=== PATIENT | female | born 1975 | race Caucasian/White ===

== ENCOUNTER 2016-12-29 07:05 | Day surgery (SDC) | payer OTHER ==
[~2016-12-29] VITALS: Ht 152.4 cm; Wt 52.2 kg
[~2016-12-29 07:05] MED LIST: AMOXICILLIN TRI1 POW; CAT0.1 PO; CIPRO250 MG PO; FERROUS GLUCON324 MG PO; GLU5 PO; LAC PO; NEP PO; NORCO1 TA1 PO; ROC25 PO; ZOFRAN ODT4 MG SL
[2016-12-29 07:54] LABS: BASOPHIL % 0.6 % (0-2); PLATELET COUNT 282 x10^3mcL (130-400)
[2016-12-29 07:56] VITALS: BP 160/91
[2016-12-29 07:57] LABS: RED CELL DISTRIBUTION WIDTH 17.1 % (11.5-14.5)
[2016-12-29 08:04] LABS: CALCIUM 7.7 mg/dL (8.5-10.1); POTASSIUM SERUM 4.1 mmol/L (3.5-5.1)
[2016-12-29 08:21] LABS: CREATININE SERUM 6.4 mg/dL (0.6-1.0)
[2016-12-29 14:01] VITALS: BP 152/82
== END 2016-12-29 13:45 | disposition home or self-care (01) ==
LOC: DS 07:05 → OR 07:05 → DS 13:45
DX: I12.0 Hypertensive chronic kidney disease with stage 5 chronic kidney disease or end stage renal disease (principal); N18.6 End stage renal disease
CPT/HCPCS: J0690; J1170; J1644; J2001; J2405; J3010; J3490

== ENCOUNTER 2016-12-31 16:52 | Emergency (ER) | payer OTHER ==
[~2016-12-31] VITALS: Ht 149.9 cm; Wt 52.8 kg
[2016-12-31 20:20] LABS: BASOPHIL % 0.5 % (0-2)
[2016-12-31 20:21] LABS: PLATELET COUNT 247 x10^3mcL (130-400); RED CELL DISTRIBUTION WIDTH 16.7 % (11.5-14.5)
[2016-12-31 20:33] LABS: BILIRUBIN TOTAL 0.3 mg/dL (0.20-1.00); CALCIUM 7.7 mg/dL (8.5-10.1); CARBON DIOXIDE 31.8 mmol/L (21-32); POTASSIUM SERUM 4.4 mmol/L (3.5-5.1)
[2016-12-31 22:20] VITALS: BP 155/84
== END 2016-12-31 22:20 | disposition home or self-care (01) ==
LOC: ED 16:52
PROVIDERS: Emergency Medicine
DX: R11.2 Nausea with vomiting, unspecified (principal); N18.6 End stage renal disease; Z99.2 Dependence on renal dialysis
CPT/HCPCS: J2405; J7030

== ENCOUNTER 2017-03-09 13:35 | Inpatient (IN) | payer OTHER ==
[~2017-03-09] VITALS: Ht 149.9 cm; Wt 54.4 kg
[2017-03-09 15:12] LABS: BILIRUBIN TOTAL 0.67 mg/dL (0.20-1.00); CALCIUM 8.2 mg/dL (8.5-10.1); CARBON DIOXIDE 29.7 mmol/L (21-32); POTASSIUM SERUM 4.5 mmol/L (3.5-5.1); TOTAL PROTEIN, SERUM 7.7 g/dL (6.4-8.2)
[2017-03-09 15:13] LABS: BASOPHIL % 0.4 % (0-2); PLATELET COUNT 263 x10^3mcL (130-400)
[2017-03-09 15:17] LABS: ALBUMIN 3.2 g/dL (3.4-5.0)
[2017-03-09 15:18] LABS: CREATININE SERUM 6.7 mg/dL (0.6-1.0)
[2017-03-09] MEDS ORDERED: LISINOPRIL1 PO1 (16:17)
[2017-03-09] MEDS ORDERED: GLYBURIDE2.5 MG (16:17)
[2017-03-09] MEDS ORDERED: HUMALOG100 U/ML (16:17)
[2017-03-09 17:55] LABS: MAGNESIUM 2.2 mg/dL (1.8-2.4); PHOSPHOROUS 6.1 mg/dL (2.5-4.9)
[2017-03-09 18:06] LABS: T3 TOTAL 0.81 ng/mL
[2017-03-09 18:07] LABS: FREE T4 1.32 ng/dL (0.76-1.46); FREE THYROXINE INDEX 3.3 ug/dL (1.4-4.5); T4(THYROXINE) 9.7 ug/dL (4.7-13.3)
[2017-03-09] MEDS ORDERED: CLONIDINE HCL0.2 MG PO (18:53)
[2017-03-09] MEDS ORDERED: HYDROCHLOROTHIA25 MG PO (18:54)
[2017-03-09] MEDS ORDERED: FUROSEMIDE80 MG PO (18:55)
[2017-03-09 19:05] VITALS: BP 192/106
[2017-03-09] MEDS ORDERED: AMLODIPINE BESY10 M2 PO (20:19)
[2017-03-09 20:21] VITALS: BP 135/77
[2017-03-09] MEDS ORDERED: METOCLOPRAMIDE H5 M1 PO (20:47)
[2017-03-09 20:52] VITALS: BP 138/77
[2017-03-09] MEDS ORDERED: OMEPRAZOLE40 M1 PO (20:53)
[2017-03-09] MEDS ORDERED: ONDANSETRON4 M3 PO (20:54)
[2017-03-09] MEDS ORDERED: MINOXIDIL2.5 MG PO (20:56)
[2017-03-10 06:16] VITALS: BP 183/99
[2017-03-10 06:32] LABS: BASOPHIL % 0.6 % (0-2); PLATELET COUNT 254 x10^3mcL (130-400)
[2017-03-10 06:45] LABS: RED CELL DISTRIBUTION WIDTH 14.7 % (11.5-14.5)
[2017-03-10 06:52] LABS: CALCIUM 7.8 mg/dL (8.5-10.1); CARBON DIOXIDE 24.7 mmol/L (21-32); MAGNESIUM 2.3 mg/dL (1.8-2.4); PHOSPHOROUS 7.4 mg/dL (2.5-4.9); POTASSIUM SERUM 5.1 mmol/L (3.5-5.1)
[2017-03-10 06:53] LABS: CREATININE SERUM 7.6 mg/dL (0.6-1.0)
[2017-03-10 07:19] LABS: UA SPECIFIC GRAVITY 1.015 (1.005-1.035); microscopic required? YES; urine erythrocyte TRACE (NEGATIVE)
[2017-03-10 07:22] LABS: AMPHETAMINE QUAL UR NONE DETECTED (NEG <=1000)
[2017-03-10 07:50] VITALS: BP 150/82
[2017-03-10 10:35] VITALS: BP 166/85
[2017-03-10 14:20] VITALS: BP 144/77
[2017-03-10 21:25] VITALS: BP 139/68
[2017-03-11] VITALS (7 sets, daily range): BP systolic 134–173; BP diastolic 74–93
[2017-03-11 06:17] LABS: BASOPHIL % 0.6 % (0-2); PLATELET COUNT 257 x10^3mcL (130-400)
[2017-03-11 06:36] LABS: CALCIUM 7.5 mg/dL (8.5-10.1); CARBON DIOXIDE 26.3 mmol/L (21-32); MAGNESIUM 1.9 mg/dL (1.8-2.4); PHOSPHOROUS 6.5 mg/dL (2.5-4.9); POTASSIUM SERUM 4.6 mmol/L (3.5-5.1)
[2017-03-11 07:08] LABS: RED CELL DISTRIBUTION WIDTH 14.6 % (11.5-14.5)
[2017-03-11 07:17] LABS: CREATININE SERUM 5.8 mg/dL (0.6-1.0)
[2017-03-12 05:53] VITALS: BP 153/85
[2017-03-12 05:58] LABS: BASOPHIL % 0.7 % (0-2); PLATELET COUNT 261 x10^3mcL (130-400); RED CELL DISTRIBUTION WIDTH 14.2 % (11.5-14.5)
[2017-03-12 06:19] LABS: PHOSPHOROUS 7.9 mg/dL (2.5-4.9); POTASSIUM SERUM 4.8 mmol/L (3.5-5.1)
[2017-03-12 06:22] LABS: CREATININE SERUM 7.5 mg/dL (0.6-1.0)
[2017-03-12 10:19] VITALS: BP 170/79
[2017-03-12 15:31] LABS: BASOPHIL % 0.6 % (0-2); PLATELET COUNT 267 x10^3mcL (130-400); RED CELL DISTRIBUTION WIDTH 14.1 % (11.5-14.5)
[2017-03-12 15:52] LABS: CALCIUM 7.6 mg/dL (8.5-10.1); MAGNESIUM 1.7 mg/dL (1.8-2.4); PHOSPHOROUS 5.4 mg/dL (2.5-4.9); POTASSIUM SERUM 3.9 mmol/L (3.5-5.1)
[2017-03-12 15:58] LABS: CREATININE SERUM 4.2 mg/dL (0.6-1.0)
[2017-03-12 17:25] VITALS: BP 175/85
[2017-03-12 17:45] VITALS: BP 174/85
[2017-03-12 19:35] VITALS: BP 135/70
[2017-03-13 05:50] VITALS: BP 140/72
[2017-03-13 05:54] LABS: BASOPHIL % 0.4 % (0-2); PLATELET COUNT 239 x10^3mcL (130-400)
[2017-03-13 06:03] LABS: CALCIUM 7.2 mg/dL (8.5-10.1); CARBON DIOXIDE 26.9 mmol/L (21-32); MAGNESIUM 1.8 mg/dL (1.8-2.4); PHOSPHOROUS 6.1 mg/dL (2.5-4.9); POTASSIUM SERUM 4.2 mmol/L (3.5-5.1)
[2017-03-13 06:05] LABS: CREATININE SERUM 5.1 mg/dL (0.6-1.0); RED CELL DISTRIBUTION WIDTH 14.7 % (11.5-14.5)
[2017-03-13] MEDS ORDERED: LEVAQUIN750 MG PO ×2 (09:47→09:51)
[2017-03-13] MEDS ORDERED: CLEOCIN HCL300 MG PO ×2 (09:49→09:51)
[2017-03-13] MEDS ORDERED: LAC PO (09:50)
[2017-03-13] MEDS ORDERED: CAT0.1 PO (09:53)
[2017-03-13 10:22] VITALS: BP 146/80
[2017-03-13 11:45] VITALS: BP 146/80
== END 2017-03-13 13:30 | disposition home or self-care (01) | DRG 177 ==
LOC: ED 13:35 → MU 16:56 → DU 16:56 → MU 03-10 17:45
PROVIDERS: Emergency Medicine; ADMIT Family Medicine
DX: J69.0 Pneumonitis due to inhalation of food and vomit (principal); N18.6 End stage renal disease; I50.43 Acute on chronic combined systolic (congestive) and diastolic (congestive) heart failure; N17.0 Acute kidney failure with tubular necrosis; E87.1 Hypo-osmolality and hyponatremia; E44.0 Moderate protein-calorie malnutrition; I13.2 Hypertensive heart and chronic kidney disease with heart failure and with stage 5 chronic kidney disease, or end stage renal disease; M94.0 Chondrocostal junction syndrome [Tietze]; E11.65 Type 2 diabetes mellitus with hyperglycemia; E11.51 Type 2 diabetes mellitus with diabetic peripheral angiopathy without gangrene; E83.39 Other disorders of phosphorus metabolism; E87.8 Other disorders of electrolyte and fluid balance, not elsewhere classified; K21.9 Gastro-esophageal reflux disease without esophagitis; D63.1 Anemia in chronic kidney disease; Z99.2 Dependence on renal dialysis; Z79.4 Long term (current) use of insulin; Z79.84 Long term (current) use of oral hypoglycemic drugs
CPT/HCPCS: 82962; 83880; 84439; 94150; J0360; J0456; J0696; J1885; J2405; J2543; J7030; J7050; J7620; Q0092

== ENCOUNTER 2017-03-25 16:10 | Emergency (ER) | payer OTHER ==
[~2017-03-25 16:10] MED LIST changes: +AMLODIPINE BESY10 M2 PO; +CLEOCIN HCL300 MG PO; +CLONIDINE HCL0.2 MG PO; +FUROSEMIDE80 MG PO; +GLYBURIDE2.5 MG; +HUMALOG100 U/ML; +HYDROCHLOROTHIA25 MG PO; +LEVAQUIN750 MG PO; +LISINOPRIL1 PO1; +METOCLOPRAMIDE H5 M1 PO; +MINOXIDIL2.5 MG PO; +OMEPRAZOLE40 M1 PO; +ONDANSETRON4 M3 PO
[2017-03-25 18:44] LABS: BILIRUBIN TOTAL 0.2 mg/dL (0.20-1.00); CALCIUM 7.2 mg/dL (8.5-10.1); CARBON DIOXIDE 27.4 mmol/L (21-32); POTASSIUM SERUM 5.5 mmol/L (3.5-5.1); TOTAL PROTEIN, SERUM 6.6 g/dL (6.4-8.2)
[2017-03-25 18:47] LABS: ALBUMIN 2.8 g/dL (3.4-5.0)
[2017-03-25 18:50] LABS: CREATININE SERUM 5.9 mg/dL (0.6-1.0)
[2017-03-25 18:56] LABS: BASOPHIL % 0.3 % (0-2); PLATELET COUNT 267 x10^3mcL (130-400)
[2017-03-25 19:03] LABS: RED CELL DISTRIBUTION WIDTH 16.1 % (11.5-14.5)
[2017-03-25 20:21] VITALS: BP 158/75
== END 2017-03-25 20:21 | disposition home or self-care (01) ==
LOC: ED 16:10
PROVIDERS: Emergency Medicine
DX: I12.0 Hypertensive chronic kidney disease with stage 5 chronic kidney disease or end stage renal disease (principal); E11.22 Type 2 diabetes mellitus with diabetic chronic kidney disease; N18.6 End stage renal disease; E87.6 Hypokalemia; D64.9 Anemia, unspecified; Z99.2 Dependence on renal dialysis; Z79.899 Other long term (current) drug therapy
CPT/HCPCS: 36415; Q0092

== ENCOUNTER 2017-06-22 19:32 | Emergency (ER) | payer OTHER ==
[2017-06-22 21:07] LABS: BASOPHIL % 0.4 % (0-2); PLATELET COUNT 340 x10^3mcL (130-400)
[2017-06-22 21:16] LABS: RED CELL DISTRIBUTION WIDTH 19.3 % (11.5-14.5)
[2017-06-22 21:34] LABS: ALBUMIN 3.9 g/dL (3.4-5.0); BILIRUBIN TOTAL 0.97 mg/dL (0.20-1.00); CALCIUM 9.4 mg/dL (8.5-10.1); CARBON DIOXIDE 25.9 mmol/L (21-32); POTASSIUM SERUM 5.3 mmol/L (3.5-5.1)
[2017-06-22 21:36] LABS: TOTAL PROTEIN, SERUM 9.5 g/dL (6.4-8.2)
[2017-06-22 21:37] LABS: CREATININE SERUM 7.6 mg/dL (0.6-1.0)
[2017-06-22 23:25] VITALS: BP 191/103
== END 2017-06-22 23:25 | disposition home or self-care (01) ==
LOC: ED 19:32
PROVIDERS: Emergency Medicine
DX: R60.0 Localized edema (principal); I31.3 Pericardial effusion (noninflammatory); I12.9 Hypertensive chronic kidney disease with stage 1 through stage 4 chronic kidney disease, or unspecified chronic kidney disease; E11.22 Type 2 diabetes mellitus with diabetic chronic kidney disease; N18.9 Chronic kidney disease, unspecified; Z90.49 Acquired absence of other specified parts of digestive tract; Z98.51 Tubal ligation status
CPT/HCPCS: 83880; J2270; J2405; Q0092

== ENCOUNTER 2017-06-25 15:00 | Inpatient (IN) | payer OTHER ==
[~2017-06-25] VITALS: Ht 149.9 cm; Wt 51.7 kg
--- NOTE | 2017-06-25 15:31 | NUR ---
PT TO ED FOR EVAL OF DIZZINESS AND GENERALIZED WEAKNESS. PT STARTED FEELING THESE SYMPTOMS WHLE DRIVING TO PICK DAUGHTER UP FROM SCHOOL. DAUGHTER STATES THAT MOTHER STATED TO HER " I FEEL LIKE I'M GOING TO PASS OUT" STATES FEELING DIZZY WITH DRY MOUTH. DIALYSIS THURSDAY, THURSDAY, AND SAT. PT WAS SUPPOSED TO BE AT DIALYSIS THIS AFTERNOON. PT TO ROOM 4. PLACED ON CARDIAC MONITORS. PT APPREARS VERY SLEEPY. ABLE TO ANSWER QUESTIONS THEN FALLS ASLEEP. GLUCOSE [id number]. PT PLACED ON CM AND 02. CONTINUE TO MONITOR.
[2017-06-25 15:58] LABS: BASOPHIL % 0.7 % (0-2); PLATELET COUNT 241 x10^3mcL (130-400)
[2017-06-25 16:01] LABS: RED CELL DISTRIBUTION WIDTH 18.9 % (11.5-14.5)
--- NOTE | 2017-06-25 16:12 | NUR ---
FAMILY AT BEDSIDE PT ON CM NO DISTRESS VSS IVF INFUSION STARTED WILL MONITOR
[2017-06-25 16:22] LABS: BILIRUBIN TOTAL 0.56 mg/dL (0.20-1.00); CALCIUM 7.8 mg/dL (8.5-10.1); CARBON DIOXIDE 29.3 mmol/L (21-32); TOTAL PROTEIN, SERUM 7.5 g/dL (6.4-8.2)
[2017-06-25 16:25] LABS: ALBUMIN 3.1 g/dL (3.4-5.0)
[2017-06-25 16:26] LABS: CREATININE SERUM 7.9 mg/dL (0.6-1.0); POTASSIUM SERUM 6.5 mmol/L (3.5-5.1)
--- NOTE | 2017-06-25 16:46 | NUR ---
PT TO CT
--- NOTE | 2017-06-25 16:54 | NUR ---
PT BACK FROM CT WITH NO INCIDENT
--- NOTE | 2017-06-25 18:49 | NUR ---
REPORT GIVEN TO [facility] RESUMING CARE OF PT IN TELE FLOOR
--- NOTE | 2017-06-25 18:55 | NUR ---
PT TRANSPORTED TO TELE FLOOR VIA GURNEY ON PORTABLE CM NO DISTRESS VSS, IV SITE PATENT. COBY PETTIT RESUMING CARE OF PT IN TELE FLOOR. SHYANN RN AND SUSANA EMT TRANSPORTING PT, ACCOMPANYING PT TO FLOOR.
--- NOTE | 2017-06-25 19:06 | NUR ---
REC'D PT FROM ER [facility]IA [facility]. PT IS AAOX4. SLOW TO ANSWER. C/O 03/16 HEADACHE. TELE #25 SR. RESP EVEN AND UNLABORED. NO SOB NOTED. 1+ EDEMA TO LLE. AV SHUNT NOTED TO LEFT UPPER ARM. BRUIT/THRILL PRESENT. IV NOTED TO RFA. INTACT AND PATENT. ORIENTED PT TO CALL LIGHT. BED IN LOWEST POSITION. WILL ENDORSE TO PRIMARY RN.
[2017-06-25 19:11] VITALS: BP 152/77
[2017-06-25 19:21] VITALS: BP 152/77
--- NOTE | 2017-06-25 19:30 | NUR ---
REC'D PT FROM [facility]. PT AAOX4, SLOW TO RESPOND, WHISPERED SPEECH. ABLE TO VERBALIZE NEEDS. PUPILS SLUGGISH. TELE 25. DENIES CP, DIZZINESS, OR PALPITATIONS. EDEMA TO BLE, L>R. DENIES RESP DISTRESS OR SOB. BREATHING EVEN/UNLABORED ON RA, SPO2 95%. LUNG SOUNDS CTA. DENIES ABD PAIN, TENDERNESS, OR N/V. HD PT. OLIGURIA. REPORTS VOIDING SMALL AMOUNTS 1-2X DAILY. LUE AV SHUNT, BRUIT/THRILL PRESENT. GEN WEAKNESS. SKIN INTACT. NO COMPLAINTS OF PAIN OR DISCOMFORT AT THIS TIME. IV TO RFA PATENT AND INFUSING. CALL LIGHT WITHIN REACH, BED AT LOWEST POSITION. WILL CONTINUE TO MONITOR.
--- NOTE | 2017-06-25 20:20 | NUR ---
REC'D ORDER FOR HD [facility]. [facility] MADE AWARE AND CONFIRMED APPOINTMENT. STATED SHE "WILL BE THERE." CONSENT OBTAINED FOR HD BY PT. AT BEDSIDE. WILL CONTINUE TO MONITOR.
--- NOTE | 2017-06-25 20:40 | NUR ---
PT C/O PAIN TO LLE 10/10. UNABLE TO DESCRIBE PAIN. MORPHINE GIVEN PER ORDER. PT REQUESTING FOOD. ON RENAL DIET. TURKEY SANDWICH WITHOUT TOMATO AND APPLE JUICE GIVEN. WILL CONTINUE TO MONITOR.
--- NOTE | 2017-06-25 20:45 | NUR ---
DIALYSIS NURSE IN. 1L NS, CURRENT LABS, AND DR'S ORDERS GIVEN. WILL CONTINUE TO MONITOR.
[2017-06-25 21:07] LABS: MAGNESIUM 2.5 mg/dL (1.8-2.4); PHOSPHOROUS 8.7 mg/dL (2.5-4.9)
[2017-06-25 21:19] LABS: FREE T4 0.83 ng/dL (0.76-1.46); FREE THYROXINE INDEX 1.8 ug/dL (1.4-4.5); T4(THYROXINE) 5.4 ug/dL (4.7-13.3)
[2017-06-25 21:23] LABS: T3 TOTAL 0.59 ng/mL
--- NOTE | 2017-06-25 23:32 | NUR ---
DR. BROOKS MADE AWARE OF PTS CXR OF IMPRESSION RESULT STATED THAT THERE ARE BIBASILAR INFILTRATES WHICH COULD REPRESENT ATELECTASIS OR PNEUMONIA.
--- NOTE | 2017-06-25 23:35 | NUR ---
DIALYSIS IN PROGRESS. TOLERATING WELL. PT RESTING IN BED WITH EYES CLOSED. NO SIGNS OF DISTRESS NOTED. BREATHING EVEN/UNLABORED ON RA. WILL CONTINUE TO MONITOR.
--- NOTE | 2017-06-25 23:49 | NUR ---
CXR SHOWS PNA. DR. BROOKS MADE AWARE. ABX ORDERED.
--- NOTE | 2017-06-26 00:07 | NUR ---
DIALYSIS COMPLETED. 3L OUT VIA LUE SHUNT. PT TOLERATED WELL. RESTING IN BED. WILL CONTINUE TO MONITOR.
[2017-06-26 00:15] VITALS: BP 150/73
--- NOTE | 2017-06-26 01:02 | NUR ---
NS ORDERED @ 100 ML/HR. BNP [id number]. DR. BROOKS MADE AWARE VIA [employer]. NO CHANGES IN ORDERS AT THIS TIME.
--- NOTE | 2017-06-26 05:48 | NUR ---
PT RESTING IN BED. AAOX4, WHISPERED SPEECH. REPONSE TIME FASTER THAN LAST NIGHT. PT STATED SHE FEELS "A LITTLE BIT BETTER." REPORTS MILD PAIN TO LLE. BP ELEVATED. 180/82, MAP 102, HR 80. DR. BROOKS MADE AWARE. ORDERED TO GIVE AM BP MED EARLY. CATAPRESS MARK ANN PO GIVEN. WILL RECHECK BP. BS 133, NO COVERAGE. CALL LIGHT WITHIN REACH, BED AT LOWEST POSITION. WILL ENDORSE TO DAY NURSE.
[2017-06-26 06:17] LABS: BASOPHIL % 0.9 % (0-2); PLATELET COUNT 238 x10^3mcL (130-400)
[2017-06-26 06:31] VITALS: BP 181/80
--- NOTE | 2017-06-26 06:33 | NUR ---
BP STILL ELEVATED 185/87, MAP 119, HR 83. LASIX PO 80 MG GIVEN EARLY. MD AWARE. PT ASYMPTOMATIC. WILL RECHECK BP.
[2017-06-26 06:45] LABS: CALCIUM 8.4 mg/dL (8.5-10.1); CARBON DIOXIDE 30.4 mmol/L (21-32); MAGNESIUM 2.1 mg/dL (1.8-2.4); PHOSPHOROUS 5.6 mg/dL (2.5-4.9); POTASSIUM SERUM 3.9 mmol/L (3.5-5.1); URIC ACID 2.7 mg/dL (2.6-6.0)
[2017-06-26 06:49] LABS: CHOLESTEROL/HDL RATIO 3.3
[2017-06-26 06:52] LABS: CREATININE SERUM 4.9 mg/dL (0.6-1.0)
[2017-06-26 07:05] LABS: RED CELL DISTRIBUTION WIDTH 19.6 % (11.5-14.5)
--- NOTE | 2017-06-26 07:30 | NUR ---
PATIENT IS IN BED, AWAKE, ALERT AND ORIENTED. IVF INFUSING WELL TO RT F/A. LUNGS CLEAR ON ROOM AIR RESP EVEN AND UNLABORED. TELE 25 NSR AT THIS TIME. DENIES ANY CHEST PAIN . PATIENT C/O 8/10 PAIN ON LEFT UPPER THIGH. MEDICATED WITH MS 2MG IV BY [facility] ORDERED. WILL MONITOR FOR EFFECT. DENIES ANY H/A OR DIZZINESS. AV SHUNT ON LEFT UPPER ARM NOTED WITH GOOD BRUIT/THRILL. RIGHT THIGH NOTED TO HAVE 1+ EDEMA. AMBULATES TO THE BATHROOM. PER PATIENT SHE ONLY VOIDS VERY LITTLE USUALLY ONCE PER DAY. NO ACUTE DISTRESS NOTED. WILL CONTINUE TO MONITOR.
--- NOTE | 2017-06-26 08:30 | NUR ---
DR CARROLL AND MEDICAL TEAM INTO SEE PATIENT AND DISCUSS PLAN OF CARE.
[2017-06-26 08:50] VITALS: BP 169/78
[2017-06-26 10:57] LABS: UA SPECIFIC GRAVITY 1.015 (1.005-1.035); microscopic required? YES; urine erythrocyte 1+ (NEGATIVE)
[2017-06-26 11:12] LABS: AMPHETAMINE QUAL UR NONE DETECTED (NEG <=1000)
[2017-06-26 12:42] VITALS: BP 151/76
--- NOTE | 2017-06-26 15:20 | NUR ---
PATIENT IS IN BED APPEARS TO BE RESTING WELL. K-PAD TO BLE ORDERED. VISITORS HAVE BEEN INTO SEE PATIENT. NO ACUTE DISTRESS NOTED.
[2017-06-26 16:33] VITALS: BP 145/75
--- NOTE | 2017-06-26 17:08 | NUR ---
I HAVE REVIEWED THE DATA COLLECTION BY [facility] (NAME): GAVIN PAINTING ENTERED ON (DATE/TIME): 06/26/17 I CONCUR WITH THE DATA AND ANY EXCEPTIONS OR COMMENTS ARE LISTED BELOW:
--- NOTE | 2017-06-26 17:35 | NUR ---
PATIENT IS SITTING UP IN BED WITH K-PAD ON BILAT THIGH AREA. PATIENT STATES HER PAIN LEVEL HAS DECREASED TO 3/10 ON THE PAIN SCALE AFTER MS IV WAS GIVEN. PATIENT UP TO THE BATHROOM PRN. NO ACUTE DISTRESS NOTED. WILL CONTINUE TO MONITOR. FAMILY MEMBERS HAVE BEEN INTO VISIT.
--- NOTE | 2017-06-26 19:25 | NUR ---
AOX4. AT BEDSIDE. TELE #25, NSR. LUNGS CLEAR AND UNLABORED ON RA. RADIAL AND PEDAL PULSES PALPABLE, EDEMA NOTED TO LEFT THIGH. BOWEL SOUNDS ACTIVE. SKIN INTACT. KPAD TO BLE. DENIES PAIN. DENIES DIZZINESS. NS @ 10 ML/HR TO R FA, NO REDNESS OR SWELLING. AV SHUNT PRESENT TO LUE. BED IN LOW POSITION, CALL LIGHT IN REACH. INSTRUCTED TO CALL FOR ASSISTANCE.
[2017-06-26 21:01] VITALS: BP 141/69
--- NOTE | 2017-06-27 01:09 | NUR ---
BREATHING EVEN AND UNLABORED. NO ACUTE DISTRESS NOTED. WILL CONTINUE TO MONITOR.
[2017-06-27 05:36] VITALS: BP 125/73
--- NOTE | 2017-06-27 06:06 | NUR ---
NO ACUTE DISTRESS NOTED. NO ACUTE CHANGES DURING SHIFT. PT WILL RECIEVE HD TODAY. WILL ENDORSE TO ONCOMING RN.
--- NOTE | 2017-06-27 07:40 | NUR ---
RECEIVED PT IN BED ALERT AND ORIENTED X4. TELE #25, NSR 75. DENIES CP, [place] OR DIZZINESS. BREATHING EVEN AND UNLABORED ON RA, NO SOB. DENIES ABD PAIN OR N/V/D. HD PT, AV SHUNT TO JULIAN. AMBULATORY. SWELLING AND TENDERNESS NOTED TO L THIGH, PT REPORTS DISCOMFORT TO AREA ESPECIALLY WHEN TOUCHED. SKIN CDI. INSTRUCTED TO USE CALL LIGHT WHEN IN NEED OF ANY ASSISTANCE.
--- NOTE | 2017-06-27 08:40 | NUR ---
PT RECEIVING HEMODIALYSIS NOW. HD RN AT BEDSIDE.
[2017-06-27 08:46] VITALS: BP 137/74
--- NOTE | 2017-06-27 12:00 | NUR ---
HEMODIALYSIS DONE. TOTAL OUTPUT OF 3L.
[2017-06-27 12:44] VITALS: BP 149/69
[2017-06-27 16:30] VITALS: BP 143/84
--- NOTE | 2017-06-27 17:46 | NUR ---
PT IN BED, ALERT AND ORIENTED, CONTINUES TO COMPLAIN OF ACHING PAIN TO L THIGH. MEDICATED WITH NORCO X2 THIS SHIFT WITH GOOD RELIEF. DRESSING TO SHUNT ON JULIAN CDI. CALL LIGHT WITHIN REACH.
[2017-06-27 19:02] VITALS: BP 93/62
--- NOTE | 2017-06-27 19:16 | NUR ---
AOX4. TELE #25, NSR. LUNGS CLEAR AND UNLABORED ON RA. RADIAL AND PEDAL PULSES PALPABLE, EDEMA NOTED TO LEFT THIGH. BOWEL SOUNDS ACTIVE. SKIN INTACT. KPAD TO BLE. DENIES PAIN AT THIS TIME. DENIES DIZZINESS. NS @ 10 ML/HR TO R FA, NO REDNESS OR SWELLING. AV SHUNT PRESENT TO LUE. BED IN LOW POSITION, CALL LIGHT IN REACH. INSTRUCTED TO CALL FOR ASSISTANCE.
[2017-06-27 20:36] VITALS: BP 129/61
--- NOTE | 2017-06-28 00:43 | NUR ---
RESTING WITH EYES. AWAKENS EASILY TO VERBAL STIMULI. BREATHING EVEN AND UNLABORED. NO ACUTE DISTRESS NOTED. WILL CONTINUE TOB MONITOR.
[2017-06-28 05:11] VITALS: BP 118/62
--- NOTE | 2017-06-28 06:04 | NUR ---
NO ACUTE CHANGES DURING SHIFT. IV PATENT AND INFUSING. WILL ENDORSE TO ONCOMING RN.
[2017-06-28 06:47] LABS: PLATELET COUNT 233 x10^3mcL (130-400)
[2017-06-28 06:50] LABS: RED CELL DISTRIBUTION WIDTH 18.8 % (11.5-14.5)
[2017-06-28 06:59] LABS: CALCIUM 7.8 mg/dL (8.5-10.1); CARBON DIOXIDE 25.7 mmol/L (21-32); PHOSPHOROUS 6.2 mg/dL (2.5-4.9); POTASSIUM SERUM 4.8 mmol/L (3.5-5.1)
[2017-06-28 07:02] LABS: CREATININE SERUM 5.3 mg/dL (0.6-1.0)
--- NOTE | 2017-06-28 07:11 | NUR ---
CREATININE 5.3, DR. COON NOTIFIED VIA [employer]
--- NOTE | 2017-06-28 07:30 | NUR ---
RECEIVED PATIENT IN BED, APPEARS TO BE RESTING WELL. AROUSED EASILY TO NAME. AV SHUNT NOTED ON LEFT UPPER ARM WITH +BRUITT/THRILL. PER PATIENT LEFT THIGH IS STILL SORE AND TENDER TO TOUCH. K-PAD IS IN PLACE. TELE 25 NSR. NO ACUTE DISTRESS NOTED. WILL CONTINUE TO MONITOR. HL PATENT.
[2017-06-28 08:11] LABS: ATYPICAL LYMPH 1 %; BAND NEUTROPHIL 10 % (0-10); BASOPHIL 2 % (0-2); MONOCYTE 6 % (0-7); SEGMENTED NEUTROPHILS 52 % (37-75)
[2017-06-28 08:13] LABS: PLATELET MORPHOLOGY PLATELETS NORMAL; rbc morphology (normal/abnorm) ABNORMAL (NORMAL)
--- NOTE | 2017-06-28 08:30 | NUR ---
DR MACEDO AND MEDICAL TEAM INTO SEE PATIENT AND DISCUSS PLAN OF CARE TO INCLUDE D/C HOME TODAY.
[2017-06-28 09:08] VITALS: BP 105/55
[2017-06-28] MEDS ORDERED: ZITHROMAX500 MG PO (10:53)
[2017-06-28] MEDS ORDERED: CYCLOBENZAPRINE5 MG PO (10:55)
[2017-06-28] MEDS ORDERED: NEU100 PO (10:57)
[2017-06-28] MEDS ORDERED: LAC PO (10:57)
[2017-06-28] MEDS ORDERED: NOR10T PO (13:18)
[2017-06-28 13:53] VITALS: BP 102/51
--- NOTE | 2017-06-28 14:14 | NUR ---
PATIENT IS READY FOR D/C HOME. HL AND TELE DC'D. PRESCRIPTION AND FOLLOW UP INSTRUCTIONS GIVEN. MEDICATION AND DM EDUCATION PROVIDED. CONDITION APPEARS STABLE. PATIENT UP TO THE SHOWER AND IS WAITING FOR SPOUSE TO ARRIVE TO TAKE HER HOME.
--- NOTE | 2017-06-28 15:50 | NUR ---
I HAVE REVIEWED THE DATA COLLECTION BY [facility] (NAME):GAVIN PAINTING ENTERED ON (DATE/TIME):06/28/2017 AT 0730 AM I CONCUR WITH THE DATA AND ANY EXCEPTIONS OR COMMENTS ARE LISTED BELOW:
== END 2017-06-28 14:40 | disposition home or self-care (01) | DRG 682 ==
LOC: ED 15:00 → DU 18:18
PROVIDERS: Emergency Medicine; Family Medicine; ADMIT Family Medicine
DX: I12.0 Hypertensive chronic kidney disease with stage 5 chronic kidney disease or end stage renal disease (principal); G93.41 Metabolic encephalopathy; J18.9 Pneumonia, unspecified organism; N18.6 End stage renal disease; N17.0 Acute kidney failure with tubular necrosis; E44.0 Moderate protein-calorie malnutrition; D68.69 Other thrombophilia; E87.1 Hypo-osmolality and hyponatremia; E11.51 Type 2 diabetes mellitus with diabetic peripheral angiopathy without gangrene; E11.65 Type 2 diabetes mellitus with hyperglycemia; E11.21 Type 2 diabetes mellitus with diabetic nephropathy; D63.1 Anemia in chronic kidney disease; E87.5 Hyperkalemia; K21.9 Gastro-esophageal reflux disease without esophagitis; E83.51 Hypocalcemia; R80.9 Proteinuria, unspecified; E87.8 Other disorders of electrolyte and fluid balance, not elsewhere classified; Z99.2 Dependence on renal dialysis; E83.39 Other disorders of phosphorus metabolism; Z79.84 Long term (current) use of oral hypoglycemic drugs; Z79.4 Long term (current) use of insulin; Z68.24 Body mass index [BMI] 24.0-24.9, adult
CPT/HCPCS: 82962; 83880; 84439; G0480; J0610; J1815; J1885; J2270; J2543; J3490; J7030; J7050; Q0092

== ENCOUNTER 2017-07-14 13:12 | Emergency (ER) | payer OTHER ==
[~2017-07-14] VITALS: Ht 152.4 cm; Wt 51.7 kg
[~2017-07-14 13:12] MED LIST changes: +CYCLOBENZAPRINE5 MG PO; +NEU100 PO; +NOR10T PO; +ZITHROMAX500 MG PO
[2017-07-14 14:46] VITALS: BP 178/99
== END 2017-07-14 14:47 | disposition home or self-care (01) ==
LOC: ED 13:12
DX: S83.92XA Sprain of unspecified site of left knee, initial encounter (principal); N18.9 Chronic kidney disease, unspecified; X58.XXXA Exposure to other specified factors, initial encounter; Y93.89 Activity, other specified; Y92.89 Other specified places as the place of occurrence of the external cause; Y99.8 Other external cause status
CPT/HCPCS: 83880; J1885; J3010; Q0092; Q0162

== ENCOUNTER 2017-11-03 06:48 | Inpatient (IN) | payer OTHER, MEDICAID ==
[~2017-11-03] VITALS: Ht 152.4 cm; Wt 64.2 kg
[2017-11-03 07:14] VITALS: Ht 152.4 cm; Wt 64.2 kg
[2017-11-03 08:17] LABS: BASOPHIL % 0.5 % (0-2); PLATELET COUNT 271 x10^3mcL (130-400)
[2017-11-03 08:22] LABS: RED CELL DISTRIBUTION WIDTH 16.9 % (11.5-14.5)
[2017-11-03 08:35] LABS: BILIRUBIN TOTAL 0.72 mg/dL (0.20-1.00); CALCIUM 8.5 mg/dL (8.5-10.1); CARBON DIOXIDE 20.7 mmol/L (21-32); POTASSIUM SERUM 4.6 mmol/L (3.5-5.1); TOTAL PROTEIN, SERUM 7.5 g/dL (6.4-8.2)
[2017-11-03 08:37] LABS: ALBUMIN 2.8 g/dL (3.4-5.0); CREATININE SERUM 5.6 mg/dL (0.6-1.0)
[2017-11-03] MEDS ORDERED: NOR10 PO (09:33)
[2017-11-03] MEDS ORDERED: HYDRALAZINE HCL25 MG PO (09:34)
[2017-11-03] MEDS ORDERED: ZESTRIL5 MG PO (09:34)
[2017-11-03] MEDS ORDERED: CLONIDINE HCL0.2 MG PO (09:34)
[2017-11-03] MEDS ORDERED: METOCLOPRAMIDE H5 M1 PO (09:35)
[2017-11-03] MEDS ORDERED: TRAMADOL HCL50 MG PO (09:36)
[2017-11-03 11:41] LABS: MAGNESIUM 2.2 mg/dL (1.8-2.4)
[2017-11-03 12:21] LABS: FREE T4 1.45 ng/dL (0.76-1.46); T4(THYROXINE) 7.4 ug/dL (4.7-13.3)
[2017-11-03 12:38] LABS: T3 TOTAL 0.7 ng/mL
[2017-11-03 12:53] VITALS: BP 136/69
[2017-11-03 13:10] VITALS: BP 125/80
[2017-11-03 17:04] VITALS: BP 128/82
[2017-11-03 19:35] LABS: CALCIUM 8.4 mg/dL (8.5-10.1); CARBON DIOXIDE 21.3 mmol/L (21-32); POTASSIUM SERUM 4.8 mmol/L (3.5-5.1)
[2017-11-03 19:43] LABS: CREATININE SERUM 4.7 mg/dL (0.6-1.0)
[2017-11-03 21:42] VITALS: BP 166/79
[2017-11-04 05:13] VITALS: BP 158/73
[2017-11-04 06:08] LABS: PLATELET COUNT 280 x10^3mcL (130-400)
[2017-11-04 06:20] LABS: BASOPHIL % 0 % (0-2); RED CELL DISTRIBUTION WIDTH 16.7 % (11.5-14.5)
[2017-11-04 06:59] LABS: CALCIUM 8.5 mg/dL (8.5-10.1); MAGNESIUM 2.2 mg/dL (1.8-2.4); PHOSPHOROUS 7.1 mg/dL (2.5-4.9); POTASSIUM SERUM 4.3 mmol/L (3.5-5.1)
[2017-11-04 07:08] LABS: CREATININE SERUM 4.4 mg/dL (0.6-1.0)
[2017-11-04 12:19] VITALS: BP 141/60
[2017-11-04 17:38] VITALS: BP 123/65
[2017-11-04 21:19] VITALS: BP 122/62
[2017-11-05 05:39] VITALS: BP 146/70
[2017-11-05 06:27] LABS: BASOPHIL % 0.1 % (0-2); PLATELET COUNT 328 x10^3mcL (130-400)
[2017-11-05 06:49] LABS: CALCIUM 8.6 mg/dL (8.5-10.1); CARBON DIOXIDE 20.8 mmol/L (21-32); MAGNESIUM 2.3 mg/dL (1.8-2.4); PHOSPHOROUS 6.6 mg/dL (2.5-4.9); POTASSIUM SERUM 4.4 mmol/L (3.5-5.1)
[2017-11-05 06:57] LABS: RED CELL DISTRIBUTION WIDTH 16.8 % (11.5-14.5)
[2017-11-05 07:05] LABS: CREATININE SERUM 5.3 mg/dL (0.6-1.0)
[2017-11-05 09:28] VITALS: BP 128/95; BP 149/69
[2017-11-05 10:19] VITALS: BP 149/69
[2017-11-05 13:52] LABS: CALCIUM 8.4 mg/dL (8.5-10.1); CARBON DIOXIDE 27.2 mmol/L (21-32); CREATININE SERUM 3.2 mg/dL (0.6-1.0)
[2017-11-05 13:57] LABS: POTASSIUM SERUM 2.7 mmol/L (3.5-5.1)
[2017-11-05 16:56] VITALS: BP 133/73
[2017-11-05 21:19] VITALS: BP 121/65
[2017-11-06 05:39] VITALS: BP 121/65
[2017-11-06 06:52] LABS: CALCIUM 7.9 mg/dL (8.5-10.1); CARBON DIOXIDE 24.6 mmol/L (21-32); CREATININE SERUM 3.8 mg/dL (0.6-1.0); MAGNESIUM 1.7 mg/dL (1.8-2.4); PHOSPHOROUS 4.6 mg/dL (2.5-4.9); POTASSIUM SERUM 4.4 mmol/L (3.5-5.1)
[2017-11-06 07:04] LABS: BASOPHIL % 0.6 % (0-2); PLATELET COUNT 310 x10^3mcL (130-400)
[2017-11-06 07:09] LABS: RED CELL DISTRIBUTION WIDTH 16.1 % (11.5-14.5)
[2017-11-06 08:28] VITALS: BP 126/64
[2017-11-06 10:05] LABS: calcium (part of PTHIC) 8.5 mg/dL (8.7-10.2)
[2017-11-06] MEDS ORDERED: CYCLOBENZAPRINE5 MG PO (12:05)
[2017-11-06] MEDS ORDERED: TOR10 PO (12:06)
[2017-11-06] MEDS ORDERED: ULT50 PO (12:07)
[2017-11-06] MEDS ORDERED: L40 PO (12:08)
[2017-11-06 12:49] VITALS: BP 149/78
[2017-11-06 16:22] VITALS: BP 142/59; BP 149/78
[2017-11-06 17:32] VITALS: BP 142/59
[2017-11-07 14:14] LABS: RHEUMATOID ARTHRITIS FACTOR <10.0 IU/mL (0.0-13.9)
== END 2017-11-06 18:50 | disposition home health service (06) | DRG 564 ==
LOC: ED 06:48 → DU 09:26
PROVIDERS: Family Medicine; Internal Medicine; Specialist
DX: M25.461 Effusion, right knee (principal); I50.43 Acute on chronic combined systolic (congestive) and diastolic (congestive) heart failure; N18.6 End stage renal disease; N17.0 Acute kidney failure with tubular necrosis; E87.1 Hypo-osmolality and hyponatremia; I13.2 Hypertensive heart and chronic kidney disease with heart failure and with stage 5 chronic kidney disease, or end stage renal disease; M65.861 Other synovitis and tenosynovitis, right lower leg; M11.261 Other chondrocalcinosis, right knee; T14.90XS Injury, unspecified, sequela; E11.22 Type 2 diabetes mellitus with diabetic chronic kidney disease; E11.65 Type 2 diabetes mellitus with hyperglycemia; E11.40 Type 2 diabetes mellitus with diabetic neuropathy, unspecified; D63.8 Anemia in other chronic diseases classified elsewhere; E03.9 Hypothyroidism, unspecified; E66.9 Obesity, unspecified; Z68.25 Body mass index [BMI] 25.0-25.9, adult; Z99.2 Dependence on renal dialysis; Z95.0 Presence of cardiac pacemaker; Z98.51 Tubal ligation status; Z90.49 Acquired absence of other specified parts of digestive tract; Z79.4 Long term (current) use of insulin; Z83.3 Family history of diabetes mellitus; Z82.49 Family history of ischemic heart disease and other diseases of the circulatory system; Z91.81 History of falling; W01.0XXS Fall on same level from slipping, tripping and stumbling without subsequent striking against object, sequela
CPT/HCPCS: 83880; 84439; 86431; 97110-GP; 97116-GP; 97530-GP; J1170; J1200; J1720; J1885; J2270; J2405; J2543; J3480; J7030; J8597; Q0092

== ENCOUNTER 2017-11-19 04:36 | Emergency (ER) | payer OTHER, MEDICAID ==
[~2017-11-19] VITALS: Ht 152.4 cm; Wt 59.4 kg
[~2017-11-19 04:36] MED LIST changes: +HYDRALAZINE HCL25 MG PO; +L40 PO; +NOR10 PO; +TOR10 PO; +TRAMADOL HCL50 MG PO; +ULT50 PO; +ZESTRIL5 MG PO
[2017-11-19 04:42] VITALS: Ht 152.4 cm; Wt 59.4 kg
[2017-11-19 08:46] VITALS: BP 179/94
== END 2017-11-19 08:46 | disposition home or self-care (01) ==
LOC: ED 04:36
DX: G89.29 Other chronic pain (principal); R25.2 Cramp and spasm; I10 Essential (primary) hypertension; E11.9 Type 2 diabetes mellitus without complications; Z99.2 Dependence on renal dialysis
CPT/HCPCS: J2270; Q0162

== ENCOUNTER 2018-02-09 13:38 | Inpatient (IN) | payer OTHER ==
[~2018-02-09] VITALS: Ht 152.4 cm; Wt 61.0 kg
[2018-02-09 13:39] VITALS: Ht 152.4 cm; Wt 61.0 kg
[2018-02-09 14:24] LABS: BASOPHIL % 0.4 % (0-2)
[2018-02-09 14:26] LABS: PLATELET COUNT 564 x10^3mcL (130-400); RED CELL DISTRIBUTION WIDTH 17.5 % (11.5-14.5)
[2018-02-09 14:36] LABS: BILIRUBIN TOTAL 0.6 mg/dL (0.20-1.00); CALCIUM 9.3 mg/dL (8.5-10.1); CARBON DIOXIDE 26.4 mmol/L (21-32); POTASSIUM SERUM 5.4 mmol/L (3.5-5.1)
[2018-02-09 14:40] LABS: ALBUMIN 2.8 g/dL (3.4-5.0); TOTAL PROTEIN, SERUM 8.7 g/dL (6.4-8.2)
[2018-02-09] MEDS ORDERED: NEPHRO-VITE VITA1 EA PO (16:31)
[2018-02-09] MEDS ORDERED: RESTORIL15 MG PO (16:31)
[2018-02-09] MEDS ORDERED: NORCO1 TA2 PO (16:32)
[2018-02-09] MEDS ORDERED: NEU300 PO (16:32)
[2018-02-09] MEDS ORDERED: PANTOPRAZOLE SO40 M1 PO (16:51)
[2018-02-09] MEDS ORDERED: TOR10 PO (16:52)
[2018-02-09] MEDS ORDERED: REG5 PO (16:52)
[2018-02-09] MEDS ORDERED: HYDRALAZINE HY100 MG PO (16:53)
[2018-02-09] MEDS ORDERED: LASIX40 MG PO (16:53)
[2018-02-09] MEDS ORDERED: CATAPRES0.1 MG PO (16:54)
[2018-02-09] MEDS ORDERED: CYCLOBENZAPRINE5 MG PO (16:54)
[2018-02-09] MEDS ORDERED: NOR10 PO (16:55)
[2018-02-09 17:36] LABS: CHOLESTEROL/HDL RATIO 3.5; MAGNESIUM 2.3 mg/dL (1.8-2.4); PHOSPHOROUS 6.8 mg/dL (2.5-4.9)
[2018-02-09 17:39] LABS: T3 TOTAL 0.4 ng/mL
[2018-02-09 17:43] LABS: FREE T4 0.87 ng/dL (0.76-1.46)
[2018-02-09 17:45] LABS: FREE THYROXINE INDEX 1.3 ug/dL (1.4-4.5)
[2018-02-09 18:09] VITALS: BP 167/81
[2018-02-09 20:25] VITALS: BP 164/74
[2018-02-09 21:04] LABS: RED BLOOD CELLS 3.12 M/mm3 (4.10-5.10)
[2018-02-09 21:56] LABS: IRON 21 ug/dL (50-170); TOTAL IRON BINDING CAPACITY 174 ug/dL (250-450)
[2018-02-10] VITALS (7 sets, daily range): BP systolic 130–158; BP diastolic 62–76
[2018-02-10 06:17] LABS: BASOPHIL % 0.7 % (0-2)
[2018-02-10 06:31] LABS: CALCIUM 8.2 mg/dL (8.5-10.1); CARBON DIOXIDE 25.8 mmol/L (21-32); MAGNESIUM 1.9 mg/dL (1.8-2.4); PHOSPHOROUS 4.6 mg/dL (2.5-4.9); POTASSIUM SERUM 4.4 mmol/L (3.5-5.1)
[2018-02-10 06:55] LABS: PLATELET COUNT 462 x10^3mcL (130-400); RED CELL DISTRIBUTION WIDTH 17.5 % (11.5-14.5)
[2018-02-11 05:34] VITALS: BP 140/63
[2018-02-11 06:50] LABS: BASOPHIL % 0.5 % (0-2)
[2018-02-11 06:51] LABS: PLATELET COUNT 472 x10^3mcL (130-400); RED CELL DISTRIBUTION WIDTH 17.1 % (11.5-14.5)
[2018-02-11 06:57] LABS: CALCIUM 8.2 mg/dL (8.5-10.1); CARBON DIOXIDE 25.2 mmol/L (21-32); PHOSPHOROUS 5.4 mg/dL (2.5-4.9); POTASSIUM SERUM 5.3 mmol/L (3.5-5.1)
[2018-02-11 07:05] LABS: CREATININE SERUM 6.1 mg/dL (0.6-1.0)
[2018-02-11 10:31] VITALS: BP 161/77
[2018-02-11 12:50] VITALS: BP 164/78
[2018-02-11] MEDS ORDERED: NEU300 PO (13:29)
[2018-02-11 13:31] VITALS: BP 160/67
[2018-02-11 15:06] VITALS: BP 117/53
[2018-02-11 15:08] VITALS: BP 117/53
[2018-02-11] MEDS ORDERED: NOR10T PO (15:42)
[2018-02-11] MEDS ORDERED: APAP/HYDROCODON1 T13 PO (15:44)
== END 2018-02-11 15:33 | disposition home or self-care (01) | DRG 682 ==
LOC: ED 13:38 → DU 16:46 → EDBEDREQ 16:54 → DU 17:56
PROVIDERS: Emergency Medicine; Family Medicine
DX: N17.0 Acute kidney failure with tubular necrosis (principal); E43 Unspecified severe protein-calorie malnutrition; I42.0 Dilated cardiomyopathy; R18.8 Other ascites; I12.0 Hypertensive chronic kidney disease with stage 5 chronic kidney disease or end stage renal disease; E87.8 Other disorders of electrolyte and fluid balance, not elsewhere classified; N18.6 End stage renal disease; E11.42 Type 2 diabetes mellitus with diabetic polyneuropathy; E11.65 Type 2 diabetes mellitus with hyperglycemia; E87.5 Hyperkalemia; I10 Essential (primary) hypertension; G90.8 Other disorders of autonomic nervous system; D63.1 Anemia in chronic kidney disease; M62.50 Muscle wasting and atrophy, not elsewhere classified, unspecified site; R19.7 Diarrhea, unspecified; D69.6 Thrombocytopenia, unspecified; Z99.2 Dependence on renal dialysis; Z68.26 Body mass index [BMI] 26.0-26.9, adult; Z95.810 Presence of automatic (implantable) cardiac defibrillator
CPT/HCPCS: 83880; 84439; 87046; 87046-59; 97110-GP; J0885-EC; J1200; J1815; J1885; J2405; J2765; J3010; J7030; J8597; Q0092

== ENCOUNTER 2018-02-13 21:10 | Emergency (ER) | payer OTHER ==
[~2018-02-13] VITALS: Ht 152.4 cm; Wt 59.0 kg
[~2018-02-13 21:10] MED LIST changes: +APAP/HYDROCODON1 T13 PO; +CATAPRES0.1 MG PO; +HYDRALAZINE HY100 MG PO; +LASIX40 MG PO; +NEPHRO-VITE VITA1 EA PO; +NEU300 PO; +NORCO1 TA2 PO; +PANTOPRAZOLE SO40 M1 PO; +REG5 PO; +RESTORIL15 MG PO
[2018-02-13 21:14] VITALS: Ht 152.4 cm; Wt 59.0 kg
[2018-02-13 21:54] LABS: BASOPHIL % 0.4 % (0-2)
[2018-02-13 22:00] LABS: PLATELET COUNT 558 x10^3mcL (130-400); RED CELL DISTRIBUTION WIDTH 17.1 % (11.5-14.5)
[2018-02-13 22:16] LABS: BILIRUBIN TOTAL 0.51 mg/dL (0.20-1.00); CALCIUM 8.8 mg/dL (8.5-10.1); CARBON DIOXIDE 25.7 mmol/L (21-32); POTASSIUM SERUM 3.8 mmol/L (3.5-5.1)
[2018-02-13 22:26] LABS: TOTAL PROTEIN, SERUM 9.2 g/dL (6.4-8.2)
[2018-02-13 22:29] LABS: CREATININE SERUM 6.3 mg/dL (0.6-1.0)
[2018-02-13 23:47] VITALS: BP 167/87
== END 2018-02-13 23:47 | disposition home or self-care (01) ==
LOC: ED 21:10
PROVIDERS: Emergency Medicine
DX: E11.43 Type 2 diabetes mellitus with diabetic autonomic (poly)neuropathy (principal); K31.84 Gastroparesis; I10 Essential (primary) hypertension
CPT/HCPCS: 83880; C9113; J2405; J2765; Q0092

== ENCOUNTER 2018-02-18 04:41 | Observation (INO) | payer OTHER ==
[~2018-02-18] VITALS: Ht 152.4 cm; Wt 59.0 kg
[2018-02-18 05:18] LABS: BASOPHIL % 0.4 % (0-2)
[2018-02-18 05:30] LABS: PLATELET COUNT 507 x10^3mcL (130-400)
[2018-02-18 05:35] LABS: BILIRUBIN TOTAL 0.37 mg/dL (0.20-1.00); CALCIUM 8.2 mg/dL (8.5-10.1); CARBON DIOXIDE 29.5 mmol/L (21-32); POTASSIUM SERUM 4.8 mmol/L (3.5-5.1); TOTAL PROTEIN, SERUM 7.9 g/dL (6.4-8.2)
[2018-02-18 05:37] LABS: ALBUMIN 2.5 g/dL (3.4-5.0)
[2018-02-18 05:39] LABS: CREATININE SERUM 6.4 mg/dL (0.6-1.0)
[2018-02-18 07:05] LABS: T3 TOTAL 0.72 ng/mL
[2018-02-18 07:14] LABS: MAGNESIUM 2.1 mg/dL (1.8-2.4)
[2018-02-18 07:19] LABS: CHOLESTEROL/HDL RATIO 3.8
[2018-02-18 07:25] LABS: FREE T4 1.15 ng/dL (0.76-1.46); FREE THYROXINE INDEX 2.1 ug/dL (1.4-4.5); T4(THYROXINE) 5.6 ug/dL (4.7-13.3)
[2018-02-18 11:36] VITALS: BP 190/89
[2018-02-18 14:54] VITALS: BP 190/86
[2018-02-18 15:24] LABS: CALCIUM 8.8 mg/dL (8.5-10.1); CARBON DIOXIDE 32.3 mmol/L (21-32); CREATININE SERUM 2.8 mg/dL (0.6-1.0); POTASSIUM SERUM 3.3 mmol/L (3.5-5.1)
[2018-02-18 15:51] LABS: RED BLOOD CELLS 2.75 M/mm3 (4.10-5.10)
[2018-02-18 16:02] LABS: IRON 23 ug/dL (50-170); TOTAL IRON BINDING CAPACITY 127 ug/dL (250-450)
[2018-02-18 18:18] VITALS: BP 167/80
[2018-02-18 20:54] VITALS: BP 153/65
[2018-02-19] VITALS (7 sets, daily range): BP systolic 103–155; BP diastolic 62–78
[2018-02-19 00:52] LABS: SOURCE FLUID PARACENTESIS
[2018-02-19 00:53] LABS: APPEARANCE FLUID HAZY; COLOR FLUID YELLOW; LYMPHOCYTE FLUID 25 %; MONOCYTE FLUID 47 %; RBC FLUID 150 /cumm; WBC FLUID 240 /cumm
[2018-02-19 08:34] LABS: BASOPHIL % 0.6 % (0-2)
[2018-02-19 08:35] LABS: PLATELET COUNT 514 x10^3mcL (130-400)
[2018-02-19] MEDS ORDERED: [UNRECOGNIZED DRUG - OTHER] PO (08:37)
[2018-02-19 09:16] LABS: CALCIUM 8.5 mg/dL (8.5-10.1); CARBON DIOXIDE 30.9 mmol/L (21-32); POTASSIUM SERUM 4.2 mmol/L (3.5-5.1)
[2018-02-19 09:33] LABS: CREATININE SERUM 4.2 mg/dL (0.6-1.0)
== END 2018-02-19 14:00 | disposition home or self-care (01) | DRG 640 ==
LOC: ED 04:41 → DU 06:05
PROVIDERS: Emergency Medicine; Family Medicine
PROC: 0W9G3ZZ Drainage of Peritoneal Cavity, Percutaneous Approach (ICD-10-PCS; principal; 2018-02-18)
DX: E87.8 Other disorders of electrolyte and fluid balance, not elsewhere classified (principal); N17.0 Acute kidney failure with tubular necrosis; N18.6 End stage renal disease; I50.43 Acute on chronic combined systolic (congestive) and diastolic (congestive) heart failure; R18.8 Other ascites; I13.2 Hypertensive heart and chronic kidney disease with heart failure and with stage 5 chronic kidney disease, or end stage renal disease; E11.22 Type 2 diabetes mellitus with diabetic chronic kidney disease; E11.42 Type 2 diabetes mellitus with diabetic polyneuropathy; E11.65 Type 2 diabetes mellitus with hyperglycemia; D63.1 Anemia in chronic kidney disease; R80.9 Proteinuria, unspecified; E83.39 Other disorders of phosphorus metabolism; Z99.2 Dependence on renal dialysis; Z68.25 Body mass index [BMI] 25.0-25.9, adult; Z95.810 Presence of automatic (implantable) cardiac defibrillator
CPT/HCPCS: 83880; 84439; 94150; 97110-GP; G0378; J0696; J1940; J2001; J2060; J2270; J2405; J2916; J3490; J8597; Q0092

== ENCOUNTER 2018-02-27 11:36 | Emergency (ER) | payer OTHER ==
[~2018-02-27] VITALS: Ht 152.4 cm; Wt 59.0 kg
[~2018-02-27 11:36] MED LIST changes: +[UNRECOGNIZED DRUG - OTHER] PO
[2018-02-27 11:41] VITALS: Ht 152.4 cm; Wt 59.0 kg
[2018-02-27 12:24] LABS: BASOPHIL % 0.5 % (0-2)
[2018-02-27 12:43] LABS: BILIRUBIN TOTAL 0.32 mg/dL (0.20-1.00); CALCIUM 9.1 mg/dL (8.5-10.1); CARBON DIOXIDE 20.6 mmol/L (21-32)
[2018-02-27 12:44] LABS: ALBUMIN 2.7 g/dL (3.4-5.0); TOTAL PROTEIN, SERUM 8.7 g/dL (6.4-8.2)
[2018-02-27 12:46] LABS: CREATININE SERUM 5.7 mg/dL (0.6-1.0)
[2018-02-27 12:47] LABS: PLATELET COUNT 469 x10^3mcL (130-400); RED CELL DISTRIBUTION WIDTH 18.4 % (11.5-14.5)
[2018-02-27 13:03] VITALS: BP 154/85
== END 2018-02-27 13:03 | disposition home or self-care (01) ==
LOC: ED 11:36
PROVIDERS: Emergency Medicine
DX: R19.7 Diarrhea, unspecified (principal); M79.671 Pain in right foot
CPT/HCPCS: 36415; J1885; Q0092